=== PATIENT | male | born 1930 ===

== ENCOUNTER → 2017-05-12 | Outpatient (REF) | payer MEDICARE | LOC: ZZSENDIN 12:00 | DX: N39.0 Urinary tract infection, site not specified (principal); R31.9 Hematuria, unspecified | CPT/HCPCS: 88108 ==

== ENCOUNTER → 2018-01-20 | Outpatient (REF) | payer MEDICARE | LOC: ZZSENDIN 18:10 | DX: Z02.9 Encounter for administrative examinations, unspecified (principal) | CPT/HCPCS: 88305 ==